=== PATIENT | female | born 1990 | race Caucasian/White ===

== ENCOUNTER 2020-02-24 12:38 | Emergency (ER) | payer BC ==
[~2020-02-24] VITALS: Ht 157.5 cm; Wt 64.8 kg
[2020-02-24 12:46] VITALS: BP 123/75
[2020-02-24] MEDS ORDERED: HYDROcodone/acetaminophen 10/325mg tab PO STA (14:46)
--- NOTE | 2020-02-24 14:47 | NUR ---
patient requesting prn for abdominal pain,received a verbal order for [place] 10mg stat.
[2020-02-24] MEDS ORDERED: HYDR-4353 PO (16:13)
== END 2020-02-24 16:17 | disposition home or self-care (01) ==
LOC: ER 12:40
DX: N83.9 Noninflammatory disorder of ovary, fallopian tube and broad ligament, unspecified (principal); Z72.89 Other problems related to lifestyle; Z88.2 Allergy status to sulfonamides; Z88.8 Allergy status to other drugs, medicaments and biological substances; Z79.899 Other long term (current) drug therapy
CPT/HCPCS: 76856; 93976; 99284